=== PATIENT | female | born 1970 ===

== ENCOUNTER 2018-03-06 12:45 | Emergency (ER) | payer OTHER ==
[2018-03-06 12:46] VITALS: BMI 23.0
[2018-03-06 13:30] VITALS: PULSE 61; RESP 18; TEMP 98.8; O2SAT 100
[2018-03-06] MEDS ORDERED: Amoxicillin-Clav 875-125 mg Tab PO STA (13:53)
[2018-03-06] MEDS ORDERED: Amoxicillin-Clav 875-125 mg Tab PO ONE (14:05)
--- NOTE | 2018-03-06 14:08 | ED PDOC ---
HPI: General Adult Time Seen by Provider: 03/06/18 13:36 Chief Complaint (Nursing): Flu-like Symptoms Chief Complaint (Provider): Nasal Congestion, Facial / Ear Pain, Headache History Per: Patient History/Exam Limitations: no limitations Onset/Duration Of Symptoms: Days (x10) Current Symptoms Are (Timing): Still Present Additional Complaint(s): 47 year old female presents to the ED for evaluation of nasal congestion, facial pain, right ear pain, and headache for the past ten days. Denies taking any medications prior to arrival. Additionally denies recent travel, sick contacts, fever, chills, throat pain, cough, dizziness, nausea, vomiting, diarrhea, abdominal pain, chest pain, and neck pain/ stiffness. LNMP: 02/26/2018 PMD: none provided Past Medical History Reviewed: Historical Data, Nursing Documentation, Vital Signs Vital Signs: Last Vital Signs Temp 98.8 F 03/06/18 13:27 Pulse 61 03/06/18 13:27 Resp 18 03/06/18 13:27 BP Pulse Ox 100 03/06/18 13:27 - Medical History PMH: No Chronic Diseases - Surgical History Surgical History: No Surg Hx - Family History Family History: States: Unknown Family Hx - Social History Current smoker - smoking cessation education provided: No Alcohol: None Drugs: Denies - Home Medications Home Medications: Ambulatory Orders Medication Instructions Recorded Amoxicillin/Clavulanate [Augmentin 1 tab PO BID #20 tab 02/26/18 875 MG-125 MG] Fluticasone Nasal [Flonase] 1 spr NS BID #1 spr 02/26/18 Ibuprofen [Advil] 200 mg PO PRN PRN 02/26/18 RX: Ibuprofen [Motrin Tab] 600 mg PO Q8 #30 tab 02/26/18 Amoxicillin/Clavulanate [Augmentin 1 tab PO BID #14 tab 03/06/18 875 MG-125 MG] RX: Naproxen 500 mg PO BID PRN #20 tab 03/06/18 - Allergies Allergies/Adverse Reactions: Allergies Allergy/AdvReac Type Severity Reaction Status Date / Time No Known Allergies Allergy Verified 02/26/18 15:15 Review of Systems ROS Statement: Except As Marked, All Systems Reviewed And Found Negative Constitutional: Negative for: Fever, Chills ENT: Positive for: Ear Pain (right), Nose Congestion, Other (facial pressure). Negative for: Throat Pain Cardiovascular: Negative for: Chest Pain Respiratory: Negative for: Cough Gastrointestinal: Negative for: Nausea, Vomiting, Abdominal Pain, Diarrhea Musculoskeletal: Negative for: Neck Pain (or stiffness) Neurological: Positive for: Headache. Negative for: Dizziness Physical Exam - Reviewed Nursing Documentation Reviewed: Yes Vital Signs Reviewed: Yes - Physical Exam Comments: GENERAL APPEARANCE: Patient is awake, alert, oriented x 3, in no acute distress. Resting comfortably. SKIN: Warm, dry; (-) cyanosis. EYES: (-) conjunctival pallor. ENMT: Right canal: (-) cerumen impaction, (-) erythema, exudate, or edema. Right TM: (+) bulging and (+) erythema, (-)effusion, (-) perforation,(-) vesicles; other ear normal. Bilateral maxillary sinuses : (+) tenderness. (-) TMJ tenderness. Pharynx: Clear; uvula midline (-) erythema, (-) exudate. Airway patent: (-) stridor. NECK: Supple, FROM (-) tenderness, (-) stiffness, (-) lymphadenopathy. CHEST AND RESPIRATORY: (-) rhonchi, (-) rales, (-) wheezes; breath sounds equal bilaterally. Respirations even and nonlabored. HEART AND CARDIOVASCULAR: (-) irregularity ABDOMEN AND GI: Soft; (-) tenderness. NEURO AND PSYCH: Mental status as above. Cranial nerves grossly intact; strength symmetric. Gait: steady. Speech: clear. (-) facial asymmetry - ECG O2 Sat by Pulse Oximetry: 100 (RA) Pulse Ox Interpretation: Normal Medical Decision Making Medical Decision Making: Initial Impression: otitis media right ear, sinusitis Time: 1350 Initial Plan: --Augmentin 1 tab PO --Tylenol 650mg PO --Re-evaluation 1510 On re-evaluation, patient reports improvement of symptoms. On exam, patient remains AAOx3, in no acute distress. Vitals stable. Lab/Diagnostic results d/w the patient in great detail. Diagnosis of otitis media of right ear, sinusitis d/w the patient. Based on history, exam and diagnostic results, plan will be for outpatient follow up. Patient instructed to follow-up with pmd / referral provided / the clinic in 1- 2 days without fail. Advised to take medication as prescribed. Return to the emergency room at any time for any new or worsening symptoms. Patient states she fully agrees with and understands discharge instructions. States that she agrees with the plan and disposition. Verbalized and repeated discharge instructions and plan. I have given the patient opportunity to ask any additional questions. -------- --------- Scribe Attestation: Documented by Nayeli Springer, acting as a scribe for Leyla Munroe PA-C. Provider Scribe Attestation: All medical record entries made by the Scribe were at my direction and personally dictated by me. I have reviewed the chart and agree that the record accurately reflects my personal performance of the history, physical exam, medical decision making, and the department course for this patient. I have also personally directed, reviewed, and agree with the discharge instructions and disposition. Disposition - Clinical Impression Clinical Impression: Otitis media of right ear, Sinusitis, Sinus headache - Patient ED Disposition Is Patient to be Admitted: No Counseled Patient/Family Regarding: Studies Performed, Diagnosis, Need For Followup, Rx Given - Disposition Referrals: Sascha Gerard MD [Staff Provider] - [facility] [place] [Outside] Disposition: Routine/Home Disposition Time: 15:10 Condition: STABLE Additional Instructions: La atencin mdica de emergencia que recibi hoy se dirigi a maddie sntomas agudos. Si le recetaron algn medicamento, llnelo y tmelo segn las indicaciones. Los sntomas pueden tardar varios camarena en resolverse. Regrese al Departamento de Emergencias si maddie sntomas empeoran, no mejoran o si tiene otros problemas. Comunquese con ramos mdico dentro de 2 camarena para tremayne nueva evaluacin y cheyanne un seguimiento o llame a gayatri de los mdicos / clnicas a los que painter sido referido y que figuran en el formulario de Informacin de visita al paciente que se incluye en ramos paquete de rene. Lleve todos los documentos que le entregaron al momento del rene junto con todos los medicamentos que est tomando para ramos visita de seguimiento. Nuestro tratamiento no puede reemplazar la atencin mdica continua por parte de un proveedor de atencin primaria (PCP) fuera del departamento de emergencias. Prescriptions: Amoxicillin/Clavulanate [Augmentin 875 MG-125 MG] 1 tab PO BID #14 tab RX: Naproxen 500 mg PO BID PRN #20 tab PRN Reason: Pain, Moderate (4-7) Instructions: Sinusitis in Adults, Ear Infections (Otitis Media), Sinus Headache (DC) Forms: [facility] (Danish) Print Language: BENGALI - POA Present On Arrival: None
[2018-03-06 14:41] VITALS: BP 132/74
== END 2018-03-06 15:19 | disposition home or self-care (01) ==
LOC: H.ER 12:45 → SUPCPDRO 12:45 → H.ER 15:19
DX: H66.91 Otitis media, unspecified, right ear (principal); J32.9 Chronic sinusitis, unspecified